=== PATIENT | male | born 1960 | race Caucasian/White ===

== ENCOUNTER 2021-08-20 11:06 | Emergency (ER) | payer OTHER ==
[~2021-08-20] VITALS: Ht 182.9 cm; Wt 90.7 kg
[~2021-08-20 11:06] MED LIST: ATIVAN1 MG; ATIVAN1 MG PO; CARBAMAZEPINE300 MG PO; CELEBREX 200 M200 M1 PO; CLONAZEPAM 1 MG1 M1; CLONAZEPAM 1 MG1 M1 PO; FLAGYL500 MG PO; HYDROCODON-ACE1 EAC7 PO; IBUPROFEN 600600 M1 PO; LEVOTHYROXINE0.05 MG PO; LIBRIUM10 MG PO; NEURONTIN 300300 M1 PO; NORCO 5-325 TA1 EACH PO; OXCARBAZEPINE600 MG PO; PERCOCET 5-3251 EACH PO; PHENERGAN 25 MG25 M1 PO; PROZAC20 MG PO; PROZAC40 MG PO; ROBITUSSIN15 MG/5 M1 PO; ROVIN-CF OF TA1 EACH IM; SEROPHENE50 MG PO; SEROQUEL 50 MG50 M2 PO; SEROQUEL400 MG PO; SYNTHROID25 MCG PO; TEGRETOL XR100 MG; TRAZODONE 150150 M1 PO; ZPAK PO
[2021-08-20 11:18] VITALS: BP 124/68
[2021-08-20] MEDS ORDERED: TRAZODONE HCL100 MG PO (15:41)
[2021-08-20 15:45] VITALS: BP 109/79
== END 2021-08-20 15:45 ==
LOC: ER 11:06 → EROBS 15:46
PROVIDERS: Nurse Practitioner Family
DX: F32.9 Major depressive disorder, single episode, unspecified (principal); Z20.822 Contact with and (suspected) exposure to COVID-19; T14.91XA Suicide attempt, initial encounter; F17.210 Nicotine dependence, cigarettes, uncomplicated; Z79.899 Other long term (current) drug therapy

== ENCOUNTER 2021-08-20 11:14 | Inpatient (IN) | payer OTHER ==
[~2021-08-20] VITALS: Ht 182.9 cm; Wt 100.7 kg
[2021-08-20] MEDS ORDERED: TRAZODONE HCL100 MG PO (15:41)
[2021-08-20 17:05] VITALS: BP 129/75
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
[2021-08-21 06:17] LABS: CHOLESTEROL 146 mg/dL (<200); HDL CHOLESTEROL 44 mg/dL (>40); LDL CHOLESTEROL 88 mg/dL (<100); TC:HDL 3.3 Ratio (Not establshd); TRIGLYCERIDE 71 mg/dL (<150); VLDL 14 mg/dL (<40)
[2021-08-21 06:22] LABS: SERUM ASSESSMENT Clear
[2021-08-21 08:43] LABS: CALCIUM 8.8 mg/dL (8.5-10.1); CREATININE 0.8 mg/dL (0.7-1.3); POTASSIUM 3.8 mmol/L (3.5-5.1)
[2021-08-21 09:07] VITALS: BP 120/71
[2021-08-21 09:14] LABS: FOLIC ACID 12.1 ng/mL (8.6-58.9)
[2021-08-21 10:00] VITALS: BP 120/71
--- NOTE | 2021-08-21 14:24 | NUR ---
Assumed pt care this am from overnight shift. Pt presented alert and oriented 4x and was anxious but pleasant at this time. Pt stated that he had overdosed on seroquel because he felt hopeless due to his friend selling the house he was living in, and making him homeless (and losing his job in the process). He stated that this reminded him of another time he had been homeless, and stated that he felt like he could never get ahead in life. Pt admitted to depression and anxiety, stating that he felt like a failure, but also stated that he was not actively suicidal or homicidal, but rather would just have passing thoughts as he was "reliving all the things that happened to me." Pt stated that he felt like his life had gone "down hill" when he "had an affair with a nurse" and "cheated on my " and that he felt that he could never put himself together. Pt stated that he did not have any physical pain, but that he wanted to rest in bed, and stay there as he still felt ill from his suicide attempt. Pt lung sounds were clear. Bowel sounds present. Last BM 08/21/21. Pt was asked if there was anything he needed after taking medication, and pt requested to be able to shave. Staff helped pt shave after lunch, and pt expressed thanks at this time, stating that it made him feel better. Pt voices no further concerns at this time, and states no active plans for suicide. Pt stated that he wants to rest, and recuperate in hospital. No further concerns at this time.
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
[2021-08-21 19:44] VITALS: BP 129/76
[2021-08-21 19:45] VITALS: BP 129/76
--- NOTE | 2021-08-21 23:58 | NUR ---
PATIENT CARE WAS RESUMED AT 1900. HE WAS SITTING IN THE DAY AREA. ABLE TO VERBALISE HIS NEEDS. HE DENIES PAINS/SI/AVH/HI. LUNGS ARE CLEAR BS ACTIVE X4 QUADS. HE TOOK HIS MEDS WHOLE. CONTINIET OF BOWEL AND BLADDER. BED IS LOW, LOCKED AND ALARME. [id number] CHECK ONGOING CONTINUE CARE
[2021-08-22 07:08] LABS: GLYCOHEMOGLOBIN (HGB A1C) 5.5 % (4.8-5.6)
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
[2021-08-22 10:08] VITALS: BP 150/95
--- NOTE | 2021-08-22 10:47 | NUR ---
Alert and orientated X4. Calm, cooperative and compliant. States he is having "constant" SI with multiple plans. States he and his psychiatrist (primary outpt) think he will always have daily SI. States he is depressed and anxious. Reports GAR of 7/10, decreased to 6/10 but he explains it is more psychological pain vs physical. Reports multiple attempts over lifetime starting at age 10. Breath sounds clear. Reg HR auscultated. Color pink with brisk capillary refill and palpable peripheral pulses. Independent with voiding. Hyperactive bowel sounds over soft, rounded abdomen. Reports multiple small, formed stools per day. Ambulates with regular, steady gait.
[2021-08-22 19:02] VITALS: BP 117/75
--- NOTE | 2021-08-23 04:09 | NUR ---
PATIENT CARE WAS RESUMED AT 1900. HE IS ALERT AND ORINETED .LAYING IN BED IN HIS ROOM WITH EYES OPEN. HE IS ABLE TO COMMUNICATE AND VERBALZE CONCERNS. DENIES SI/AVH/HI.LUNGS ARE CLEAR BS ACTIVEX 4 QUAD.CONT BOWEL AND BLADDER. HE TOOK HIS MED WHOLE AND SAID HE NEED HIS TRAZODONE INCREASED TO HIS PREVIOUS DOSE OF 300MG. BED IS LOW, LOCKED AND Q12 MINUTES CHECKS ACTIVE.
[2021-08-23 10:32] VITALS: BP 127/75
[2021-08-23 11:10] VITALS: BP 127/75
--- NOTE | 2021-08-23 11:57 | NUR ---
RESUMMED CARE; PATIENT LOCATED UP IN THE DINNING [place]ANERJEE ALONGSIDE HIS PEERS; A&O*4; VSS ON ROOMAIR; PATIENT COMPLAINTS OF CHRONIC PAIN-6/10-MEDICATIONS GIVEN PER MAR; PATIENT PRESENTS [id number]; HYPERVERBAL DURING CARES; DENIES SOB-CP; NO ACUTE S/O DISTRESS NOTED; PATIENT DID VERBALIZE ACTIVE SI PLANS TO OBJECT ORIENTED PROGRAMMER DURING ASSESSMENT; WHEN OBJECT ORIENTED PROGRAMMER ASKED PATIENT IF HE CURRENTLY FELT LIKE HURTING HIMSELF, HE STATED " WELL YES, BUT I WOUNDN'T DO ANYTHING HERE." OBJECT ORIENTED PROGRAMMER ASKED PATIENT IF HE WAS TO BE DISCHARGED TODAY, WHAT WOULD HE DO? PATIENT RESPONDED " I WOULD GO TO THE [facility], DRINK SEVERAL BOTTLES OF SEGRAMS 7, PROBABLY TAKEN SOME RANDOM PILLS." "THEN I WOULD GO DOWN TO THE BRIDGE BY THE HOTEL & JUMP INFRONT OF A TRUCK." OBJECT ORIENTED PROGRAMMER ASKED THE PATIENT WHY HE FELT THIS WAY & IF SOMETHING IN PATICULAR WAS MAKING HIM FEEL THIS WAY. PATIENT STATED " I HAVE LIVED A GOOD LIFE, IM NOT GOING TO SUFFER WITH GETTING OLD, SO IM GOING TO TAKE MYSELF OUT FIRST." "I JUST DONT KNOW WHY ASSISTED SUICIDE ISN'T LEGAL, MAKE MY LIFE ALOT EASIER." PATIENT VOICES NO CLEAR WILL FOR A FUTURE IN LIFE; OBJECT ORIENTED PROGRAMMER EDUCATED PATIENT ON COPPING SKILLS, AND PATIENT REPLIED TO EDUCATION " I'M DONE COPING, I'M JUST DONE." WILL CONTINUE TO MONITIOR PATIENT PER [facility] PROTOCOL; LOW-FALL RISK PRECAUTIONS ARE IN PLACE; SEZIURE PRECAUTIONS ARE IN PLACE; SUICIDE PRECAUTIONS ARE IN PLACE; Q12 MINUTE ROUNDS;
[2021-08-23 19:07] VITALS: BP 135/85
[2021-08-23 19:35] VITALS: BP 135/85
--- NOTE | 2021-08-23 21:34 | NUR ---
CONTINUED PATIENT CARE INTO NEXT SHIFT; A&O*3; NO S/O ACUTE DISTRESS NOTED; PATIENT DENIES HI/AVH; PATIENT STILL COMMUNICATES SI WITH ELECTRIC SHAVER MECHANIC, ALTHOUGH IS MORE POSITIVE ABOUT COPING AND ASKING FOR HELP; PATIENT STATED TO ELECTRIC SHAVER MECHANIC "I THINK I JUST CONTINUE TO OVERTHINK EVERYTHING CAUSING MYSELF TO OVERTHINK." ELECTRIC SHAVER MECHANIC PROVIDED THERAPUTIC CARES AND EDUCATION; PATIENT COMPLAINTS OF CHRONIC GENERALIZED PAIN 5/10-MEDICATIONS GIVE PER MAR; VSS ON ROOMAIR; LOW-FALL RISK PRECAUTIONS IN PLACE; SEZIURE PRECAUTIONS ARE IN PLACE; HANDING OFF CARES TO RN;
[2021-08-24 08:20] VITALS: BP 128/82
[2021-08-24 09:17] VITALS: BP 128/82
--- NOTE | 2021-08-24 12:41 | NUR ---
Assumed pt care this am from overnight shift. Pt was in activity area eating during this time, and presented frustrated and irritable, stating that he had a frustrating night prior. Pt was alert and oriented 4x, and took all medications during this time despite this. Pt endorsed depression and anxiety, and asked staff in a sarcastic tone, "well, wouldn't you be depressed if that's all you thought about all the time" and continued to state that he was having passive thoughts of SI, but would not state what they were as he was "in the hospital and always had them anyway." Pt continued to state that "I always feel like this anyway." Pt went on to deny hallucinations and to deny hi. Pt lung sounds were clear. Bowel sounds active. Pt last BM 08/23/21. After breakfast pt, initially went to group, but started arguing with group flag car driver. Pt started to yell and scream and went to room, slamming door and would not engage with staff, yelling "I don't care, get me out of this fucking place, I'll discharge, I don't give a fuck, get out of my face." Staff used therapeutic communication to de-escalate client at this time, and let client rest in room. At lunch time, prn hydrox given to help with additional anxiety. No further concerns at this time.
[2021-08-24 19:36] VITALS: BP 125/73
[2021-08-24 19:40] VITALS: BP 125/73
--- NOTE | 2021-08-24 20:08 | NUR ---
Assumed care on 08/24/21 @ 1900, seated on the sofa in front of the TV watching [employer]. Noted to become agitated at the football game and stands and curses periodocally. Requests vistaril for anxiet and tlenol or ibuprophen for pain in th eneck and hip. Reports SI feeling daily, reports that he has agreed not to hurt himself while in the hospital at this time. Will continue to monitor for safety and comfort as per unit protocol.
[2021-08-25 09:13] VITALS: BP 112/74
[2021-08-25 09:31] VITALS: BP 112/74
--- NOTE | 2021-08-25 11:53 | NUR ---
RESUMMED CARE FROM OVERNIGHT SHIFT THIS AM, PATIENT CALM COOPERATIVE. PATIENT ALERT ORIENTED TIMES 4, PATIENT DENIES SI/HI/AH/VH AT PRESENT. PATIENT STATES HE HAS ANXIETY AND DEPRESSION WHICH HE RATES A 10. I TALKED WITH PATIENT ABOUT DEVELOPING COPING SKILLS TO HELP HIM WITH STRESSFUL SITUATIONS. PATIENT ATE BREKAFAST TOOK MEDICATION WITHOUT INCIDENCE. PATIENT COMPLAINS OF PAIN BEING A 10 AND ASKS ABOUT PAIN MEDICATION. I EXPLAINED TO PATIENT THAT MOST PHYSICIANS TRY OTHER DRUGS INSTEAD OF OPIATES AND OTHER PAIN MEDICATION THAT IS ADDICTING. PATIENTS ABDOMEN SOFT BOWEL SOUNDS PRESENT PAIENTS LUNGS CLEAR. PATIENT IS NOT REALLY TREATMENT FOCUSED HE IS AT TIMES SUPERFICIAL ABOUT CERTAIN MATTERS. PATIENT DOES COME TO GROUPS AND SOMETIMES PARTICIPATES. WILL CONTINUE TO MONITOR PATIENT FOR SAFETY AND BEHAVIORS.
--- NOTE | 2021-08-25 16:57 | NUR ---
Meeting with patient, Dr. Simons and SW - Patient continues to express SI. STEVE and Dr. Simons discussed homeless shelters for the patient. The patient was against [facility] due to location, stating it is not safe for a white person. The patient also expressed not wanting to go to program geared at substance abuse treatment. Patient continues to have feelings of anger towards Cedrick, the roommate whom he lived with prior to admission as he feels he needed only a few more months and then he would have been "set".
--- NOTE | 2021-08-25 19:35 | NUR ---
Assumed care on 08/25/21 @ 1900, in bed, answers to voice, allow assessment, HRRR, Lungs CTA bilat, Rates depression and anxiety "thru the roof", hip and neck pain 02/08, would like a tylenol with HS meds. Bed in low position, Will continue to monitor for safety and comfort as per unit protocol.
[2021-08-25 19:45] VITALS: BP 128/71
[2021-08-25 19:54] VITALS: BP 128/71
[2021-08-26 09:06] VITALS: BP 114/65
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
[2021-08-26 19:16] VITALS: BP 123/77
[2021-08-26 21:59] VITALS: BP 123/77
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
[2021-08-27 07:30] VITALS: BP 119/72
--- NOTE | 2021-08-27 11:21 | NUR ---
Faxed [facility] Suicide Referral form to [facility]
--- NOTE | 2021-08-27 15:47 | NUR ---
PATIENT HAS BEEN UP, AND OUT ON THE UNIT, AMBULATE WITH STEADY GAIT. PATIENT TOOK ALL MEDICATION WHOLE WITHOUT DIFFICULTY, HE IS EATING MEALS, AND DRINKING FLUID WELL. PATIENT IS ANGRY, AGITATED, FRUSTRATED ABOUT JOB/HOME LOSS. PATIENT ENDORSES SUICIDAL IDEATION, STATES "THERE IS NO REASON TO LIVE RIGHT NOW, THEY ARE GOING TO DISCHARGE ME. I JUST WANT TO STAY IN HOTEL FOR A FEW DAYS, WATCH [employer] GAME ON WEDNESDAY, DO MY STUPID THING AGAIN, GET DRUNK, OUT, AND RUN INTO TRAFFIC". DR. ALEJO NOTIFIED THAT PATIENT ENDORSES SUICIDAL IDEATION. PATIENT RATES BOTH DEPRESSION/ANXIETY 10/10, NECK/RIGHT HIP PAIN RATED 7/10, PRN TYLENOL, AND IBUPROFEN GIVEN X 1 EACH WITH MINIMAL EFFECT. PATIENT NOTED TO HAVE ANGER ISSUES, NO OUTBURST NOTED AT THIS TIME THOUGH. PATIENT CURRENTLY IN ROOM TAKING A NAP. AFFECT IS SAD/ANGRY, MOOD IS DEPRESSED/IMPULSIVE/IRRITABLE. NO SIGN OF ACUTE DISTRESS NOTED AT THIS TIME, WILL MONITOR FOR SAFETY.
[2021-08-27 18:48] VITALS: BP 108/79
[2021-08-27 19:35] VITALS: BP 108/79
[2021-08-27 23:10] VITALS: BP 108/79
--- NOTE | 2021-08-28 01:30 | NUR ---
PATIENT CARE WAS RESUMED AT 1900 HE IS ALERT AND ORIENTED. HE AMBULATES, LUNGS ARE CLEAR BS ACTIVE X4 QUADS. LUNGS ARE CLEAR BS ACTIVE X4 QUAD. TOOK HIS MEDS WHOLE. HE DENIES PAINS/AVH/HI. CONT OF BOWEL AND BLADDER.BED IS LOW, LOCKED AND [id number] CHECK IS ONGOING. CONTINUE CARE
[2021-08-28 07:00] VITALS: BP 106/60
--- NOTE | 2021-08-28 08:48 | NUR ---
Hospital diversion referral faxed
--- NOTE | 2021-08-28 10:27 | NUR ---
Pt states he is having constant SI. States upon discharge he plans on going to hotel for 2 days and drinking alcohol then stepping in front of a car to kill himself. Contracts for safety here and states he has no intention of killing himself while hospitalized. Denies HI. Alert and orientated X4. Compliant with assessment with exception of having buttocks examined. Breath sounds clear. Reg HR auscultated. Color pink with brisk capillary refill and palpable peripheral pulses. Active bowel sounds over soft, rounded abdomen. States he had BM yesterday. Independent with voiding. Ambulates with regular, steady gait. Participating in groups. Currently speaking with Dr. Simons and Mary WILSON. No s/o distress.
[2021-08-28] MEDS ORDERED: Nicotine Transdermal TRANSDERM (10:48)
[2021-08-28] MEDS ORDERED: CELEBREX 200 M200 M1 PO (10:49)
[2021-08-28] MEDS ORDERED: OXCARBAZEPINE300 MG PO (10:50)
[2021-08-28] MEDS ORDERED: TRAZODONE HCL100 MG PO (10:51)
[2021-08-28] MEDS ORDERED: VISTARIL 25 MG25 M1 PO (10:51)
[2021-08-28] MEDS ORDERED: SYNTHROID50 MCG PO (10:52)
[2021-08-28 10:58] VITALS: BP 106/60
[2021-08-28 11:14] VITALS: BP 106/60
[2021-08-28 12:29] VITALS: BP 106/60
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
== END 2021-08-28 13:05 | disposition home or self-care (01) | DRG 885 ==
LOC: SBH 11:14
PROVIDERS: Hospitalist; ADMIT Psychiatry & Neurology Psychiatry; ATTEND Psychiatry & Neurology Psychiatry
DX: F33.3 Major depressive disorder, recurrent, severe with psychotic symptoms (principal); R45.851 Suicidal ideations; F17.210 Nicotine dependence, cigarettes, uncomplicated; E03.9 Hypothyroidism, unspecified; G89.29 Other chronic pain; Z20.822 Contact with and (suspected) exposure to COVID-19; F41.1 Generalized anxiety disorder; Z87.820 Personal history of traumatic brain injury; M54.10 Radiculopathy, site unspecified; T43.592A Poisoning by other antipsychotics and neuroleptics, intentional self-harm, initial encounter; Y92.89 Other specified places as the place of occurrence of the external cause; F60.3 Borderline personality disorder
CPT/HCPCS: 10880